=== PATIENT | male | born 1995 | race Caucasian/White ===

== ENCOUNTER 2019-11-22 20:08 | Inpatient (IN) | payer OTHER ==
[2019-11-23] MEDS ORDERED: buPROPion 75 MG TAB As Ordered ONE (13:41)
[2019-11-23] MEDS ORDERED: buPROPion 75 MG TAB ONE (13:41)
[2019-11-24] MEDS ORDERED: buPROPion **XL** TABLET 150MG (WELLBUTRIN XL) ONE (08:06)
[2019-11-24] MEDS ORDERED: buPROPion **XL** TABLET 150MG (WELLBUTRIN XL) As Ordered ONE (08:06)
[2019-11-24] MEDS ORDERED: traZODone 50 MG TAB As Ordered ONE (22:35)
[2019-11-24] MEDS ORDERED: traZODone 50 MG TAB ONE (22:35)
[2019-11-25] MEDS ORDERED: buPROPion **XL** TABLET 150MG (WELLBUTRIN XL) As Ordered ONE (09:48)
[2019-11-25] MEDS ORDERED: buPROPion **XL** TABLET 150MG (WELLBUTRIN XL) ONE (09:48)
[2019-11-25] MEDS ORDERED: traZODone 50 MG TAB As Ordered ONE (20:04)
[2019-11-25] MEDS ORDERED: traZODone 50 MG TAB ONE (20:04)
[2019-11-26] MEDS ORDERED: buPROPion **XL** TABLET 150MG (WELLBUTRIN XL) ONE (07:35)
[2019-11-26] MEDS ORDERED: buPROPion **XL** TABLET 150MG (WELLBUTRIN XL) As Ordered ONE (07:35)
[2020-01-07 18:37] LABS: BASO # 0.1 10^3/uL (0.0-0.2); BASO % 0.7 % (0.0-1.0); EOS # 0.5 10^3/uL (0.0-0.5); EOS % 6.7 % (0.0-3.0); HEMATOCRIT 42.6 % (42.0-52.0); HEMOGLOBIN 13.9 g/dl (13.5-17.5); LYMPH # 2.3 10^3/uL (1.5-5.0); LYMPH % 33.3 % (24.0-44.0); MEAN CORPUSCULAR HEMOGLOBIN 32.6 pg (27.0-33.0); MEAN CORPUSCULAR HGB CONC 32.6 g/dl (32.0-36.5); MONO # 0.6 10^3/uL (0.0-0.8); MONO % 8.6 % (0.0-5.0); NEUTROPHILS # 3.4 10^3/uL (1.5-8.5); NEUTROPHILS % 50.3 % (36.0-66.0); PLATELET COUNT, AUTOMATED 140 10^3/uL (150-450); RED BLOOD COUNT 4.26 10^6/uL (4.30-6.10); WHITE BLOOD COUNT 6.8 10^3/uL (4.0-10.0)
[2020-02-06 22:49] LABS: ACETAMINOPHEN LEVEL < 2.0 UG/ML (10.0-30.0); ALBUMIN 3.5 GM/DL (3.2-5.2); ALT/SGPT 49 U/L (12-78); BILIRUBIN,DIRECT < 0.1 MG/DL (0.0-0.2); BILIRUBIN,TOTAL 0.2 MG/DL (0.2-1.0); BLOOD UREA NITROGEN 15 MG/DL (7-18); CALCIUM LEVEL 8.6 MG/DL (8.5-10.1); CARBON DIOXIDE LEVEL 33 MEQ/L (21-32); CHLORIDE LEVEL 109 MEQ/L (98-107); CREATININE FOR GFR 1.11 MG/DL (0.70-1.30); ETHYL ALCOHOL (ETHANOL) < 0.003 % (0.000-0.010); GLOMERULAR FILTRATION RATE > 60.0 (>60); GLUCOSE, FASTING 92 MG/DL (70-100); POTASSIUM SERUM 3.9 MEQ/L (3.5-5.1); SALICYLATE LEVEL < 1.7 MG/DL (5.0-30.0); SODIUM LEVEL 144 MEQ/L (136-145); TOTAL PROTEIN 6.7 GM/DL (6.4-8.2)
[2020-02-06 22:50] LABS: AMPHETAMINES LEVEL URINE NEGATIVE (NEGATIVE); BARBITURATES URINE NEGATIVE (NEGATIVE); BENZODIAZEPINES URINE NEGATIVE (NEGATIVE); CANNABINOIDS URINE NEGATIVE (NEGATIVE); COCAINE METABOLITE URINE NEGATIVE (NEGATIVE); METHADONE URINE NEGATIVE (NEGATIVE); OPIATES URINE NEGATIVE (NEGATIVE); PHENCYCLIDINE URINE NEGATIVE (NEGATIVE)
[2020-02-06 23:05] LABS: FREE T4 1.18 NG/DL (0.76-1.46)
--- NOTE | 2020-02-11 20:51 | MHDSPDOC ---
[facility] Discharge Summary Discharge Summary DATE OF ADMISSION: Nov 22, 2019 at 22:50 DATE OF DISCHARGE: Nov 26, 2019 at 09:23 DISCHARGE DIAGNOSES: Unspecified depressive disorder CONSULTANTS INVOLVED:[ None (basic hospitalist screening)] REASON FOR ADMISSION & TREATMENT AND PROGRESS ON THE UNIT : The patient was admitted to the inpatient mental health unit after having suicidal thoughts. He had had some concerning action prior to his presentation where he was subsequently brought in and evaluated during his initial assessment. He was treated with Wellbutrin 150 mg and did well. Resolved well and eventually was triaged for discharge. Other providers were concerned about some hopelessness that was present, but patient ultimately reported that he was doing quite well and was unsure as to why he needed to stay longer. Discharged with Wellbutrin 150 mg XR called into his pharmacy. DISCHARGE ASSESSMENT[improved] Legal status considerations: The patient at the time of discharge did not meet criteria for involuntary admission/extension due to having a [normal] mental status exam, [fair] insight into the situation, They are engaged in the discharge process, as well as being friendly and amenable in behavioral control and havent been engaging in any observed concerning behavior or ideation recently. They decline voluntary extension/admission at this time and must be discharged in [place], as Im unable to make a case for holding the patient against their will. They may have historical risk factors of admissions and other interactions with psychiatry however, those are not modifiable from a clinical perspective. The patient will need to be discharged in [place]. MENTAL STATUS EXAMINATION ON DISCHARGE: [General: Well dressed with good hygiene Speech: Spontaneous and fluid Thought processes: Linear and logical Thought content: Future orientated Abstract reasoning, and computation: Intact Description of associations: Intact Description of abnormal or psychotic thoughts:Denies any suicidal or homicidal ideation. Denies any auditory or visual hallucinations. Does not appear to be responding to internal stimuli. Does not appear to be endorsing any bizarre or paranoid ideation. Judgment: fair Insight: fair Orientation: Alert and orientated 3 Recent and remote memory: Intact Attention span and concentration: Intact Fund of knowledge: Adequate Mood: "okay" Affect: Euthymic with a full range] PLAN/FOLLOWUP ARRANGEMENTS: Follow up appointments made (PCP and MH in 5 days of D/C date) and safety plan completed. Safety Planning aspects completed prior to discharge [Medication supplies limited to 7 days with 4 refills to prevent accumulation to OD] [RN reviewed crisis hotline information and other aspects to empower patient to access care in interim before next appointment.] The amount of time spent in the coordination of care for this patient was a pproximately 30 minutes. ONEIDA GANNON DO Feb 11, 2020 20:51
== END 2019-11-26 09:23 | disposition home or self-care (01) | DRG 881 ==
LOC: M ED 20:08 → M PSY 22:50
PROVIDERS: ADMIT Psychiatry & Neurology Addiction Medicine; ATTEND Psychiatry & Neurology Addiction Medicine
DX: F32.9 Major depressive disorder, single episode, unspecified (principal)

== ENCOUNTER 2020-07-19 00:19 | Emergency (ER) | payer OTHER ==
[2020-07-19] MEDS ORDERED: PROZ20CA11 PO (00:46)
[2020-07-19 01:20] VITALS: BP 135/67
== END 2020-07-19 01:20 | disposition home or self-care (01) ==
LOC: M ED 00:19
DX: F50.2 Bulimia nervosa (principal); F33.9 Major depressive disorder, recurrent, unspecified; Z79.899 Other long term (current) drug therapy

== ENCOUNTER → 2020-10-25 | Outpatient (REF) | payer OTHER ==
[~2020-10-25] MED LIST: PROZ20CA11 PO
--- NOTE | 2020-10-26 07:57 | ECHO ---
ECHOCARDIOGRAM DATE OF PROCEDURE: 10/25/2020 Age: 25 Gender: Male Height: 183 cm Weight: 95 kg REFERRING PHYSICIAN: Dr. Julian Parikh INDICATION: Chest pain MEASUREMENTS: IVS 0.7 cm LV 6.0 cm LVPW 0.7 cm LA 3.7 cm Aorta 3.2 cm Left atrium volume index 27 Mitral E wave velocity 74 A wave 35 E prime septal 11.8 E prime lateral 15.3 IVC 3.4 FINDINGS: This study is of adequate technical quality, underlying sinus bradycardia with ventricular rate in mid to high 40's. Left ventricle is mildly dilated. Overall it is normally contractile. Estimated LVEF approximately 55 to 60%. Right ventricle is also normal size and systolic function. Both atria appear normal. All four cardiac valves were reasonably well seen and appear normal. No pericardial effusion is noted. Inferior vena cava is markedly dilated and there is no appreciable collapse with inspiration indicative of high central venous pressure. Aortic root and aortic arch and visualized segment of abdominal aorta all appear normal. Doppler interrogation reveals competent aortic valve. There is mild mitral, trace tricuspid and no pulmonic insufficiency. Calculated pulmonary artery pressure is 30-40 mmHg, corresponding to mild pulmonary hypertension. Mitral inflow pattern and tissue Doppler imaging of mitral annulus revealed likely normal diastolic function. CONCLUSIONS: 1. Study is of adequate technical quality, underlying sinus rhythm. 2. Mildly dilated left ventricle with normal LV systolic and diastolic function. 3. Normal right ventricle size and systolic function. 4. No significant valvular disease. 5. Likely high central venous pressure and at least mild pulmonary hypertension. MTDD
== END ==
LOC: M CARPUL 09:06 → EDSTATUS 09:30
PROVIDERS: ATTEND Internal Medicine
DX: R07.9 Chest pain, unspecified (principal)

== ENCOUNTER → 2020-12-01 | Outpatient (REF) ==
--- NOTE | 2020-12-01 10:20 | REP ---
INDICATION: ARTHRITIS COMPARISON: None. TECHNIQUE: PA and lateral. FINDINGS: The mediastinum and cardiac silhouette are normal. The lung abraham are clear and without acute consolidation, effusion, or pneumothorax. The skeletal structures are intact and normal. IMPRESSION: No acute cardiopulmonary process. <Electronically signed by Kane Krishnan > 12/01/20 [id number]
--- NOTE | 2020-12-01 10:34 | REP ---
INDICATION: ARTHRITIS COMPARISON: None. TECHNIQUE: AP, lateral, bilateral oblique views left foot. FINDINGS: The osseous structures and joint spaces are intact and normal. There is no evidence for acute fracture or healed injury. Surrounding soft tissues are unremarkable. No subcutaneous emphysema or radiodense foreign body. No significant arthritic changes noted. IMPRESSION: Age-appropriate left foot radiographs. No significant arthritic changes appreciated. <Electronically signed by Kane Krishnan > 12/01/20 [id number]
--- NOTE | 2020-12-01 10:34 | REP ---
INDICATION: ARTHRITIS COMPARISON: None. TECHNIQUE: AP and lateral views right foot. FINDINGS: The osseous structures and joint spaces are intact and normal. There is no evidence for acute fracture or healed injury. Surrounding soft tissues are unremarkable. No subcutaneous emphysema or radiodense foreign body. No significant arthritic changes noted. IMPRESSION: Age-appropriate right foot radiographs. No overt arthritic changes appreciated. <Electronically signed by Kane Krishnan > 12/01/20 [id number]
--- NOTE | 2020-12-01 10:36 | REP ---
INDICATION: ARTHRITIS COMPARISON: None. TECHNIQUE: AP, lateral, bilateral oblique views right and left ankle. FINDINGS: Right ankle: No acute fracture or dislocation. Skeletal structures and joint spaces are intact and normal. Ankle mortise appears stable. No subcutaneous emphysema or radiodense foreign body. Left ankle: No acute fracture or dislocation. Skeletal structures and joint spaces are intact and normal. Ankle mortise appears stable. No subcutaneous emphysema or radiodense foreign body. IMPRESSION: Normal symmetric bilateral ankle radiograph series. <Electronically signed by Kane Krishnan > 12/01/20 [id number]
== END ==
LOC: M PLAIMG 09:20
PROVIDERS: ATTEND Internal Medicine
DX: M19.90 Unspecified osteoarthritis, unspecified site (principal)

== ENCOUNTER → 2020-12-20 | Outpatient (REF) ==
--- NOTE | 2020-12-20 10:48 | REP ---
INDICATION: ARTHRITIS. COMPARISON: None. TECHNIQUE: Four views, bilateral forearm series. FINDINGS: AP and lateral views of the left and right forearm demonstrate normal bones, joints, and soft tissues. No fracture or subluxation is seen. No opaque foreign body noted. No evidence of arthropathy. IMPRESSION: Negative bilateral forearm series. <Electronically signed by Yung Siddiqui > 12/20/20 [id number]
== END ==
LOC: M PLAIMG 09:38
PROVIDERS: ATTEND Internal Medicine
DX: M13.80 Other specified arthritis, unspecified site (principal)